=== PATIENT | male | born 1990 | race Caucasian/White ===

== ENCOUNTER 2019-10-22 14:56 | Emergency (ER) | payer MEDICAID, OTHER ==
[~2019-10-22] VITALS: Ht 167.6 cm; Wt 80.3 kg
[2019-10-22 15:22] VITALS: BP 122/77
[2019-10-22 16:19] LABS: Urine Blood TRACE /uL (Negative); Urine Specific Gravity 1.018 (1.001-1.035)
[2019-10-22] MEDS ORDERED: AZITHROMYCIN 250 MG TAB PO ONE ×2 (18:00→18:08)
[2019-10-22] MEDS ORDERED: cefTRIAXone SODIUM 250 MG VL IM ONE (18:00)
[2019-10-22] MEDS ORDERED: cefTRIAXone SOD 1,000 MG VL ONE (18:03)
== END 2019-10-22 18:19 | disposition home or self-care (01) ==
LOC: EDBD 14:56 → ER 14:56
DX: B00.9 Herpesviral infection, unspecified (principal)
CPT/HCPCS: 81003; 96372; 99283; J0696